=== PATIENT | female | born 1990 | race Two or more races ===

== ENCOUNTER 2016-06-14 02:35 | Inpatient (IN) | payer OTHER ==
[2016-06-14] MEDS ORDERED: IV START KIT ONE (04:59)
[2016-06-14] MEDS ORDERED: OXYTOCIN IN LR 500 ML IV ONE ×2 (05:00→05:19)
[2016-06-14] MEDS ORDERED: OXYTOCIN 10 UNITS/ML VIAL ONE (05:00)
[2016-06-14] MEDS ORDERED: MINERAL OIL 25 ML BOT ONE (05:00)
[2016-06-14] MEDS ORDERED: LIDOCAINE 1% (PRES FREE) 30 ML VIAL ONE (05:00)
[2016-06-14] MEDS ORDERED: LACTATED RINGERS 1,000 ML ONE (05:00)
[2016-06-14] MEDS ORDERED: PUMP TUBING ONE (05:00)
[2016-06-14] MEDS ORDERED: LIDOCAINE Viscous 2% 15 ML UDCUP ONE (05:00)
[2016-06-14] MEDS ORDERED: SODIUM CHLORIDE 0.9% FLUSH 10 ML ONE (05:01)
[2016-06-14] MEDS ORDERED: LACTATED RINGERS 1,000 ML IV PRN (05:19)
[2016-06-14] MEDS ORDERED: EPIDURAL PUMP SET ONE (05:28)
[2016-06-14] MEDS ORDERED: FENTANYL/ROPIVACAINE EPIDURAL 250 ML EP ONE (05:28)
[2016-06-14] MEDS ORDERED: EPIDURAL PROCEDURE TRAY ONE (05:42)
[2016-06-14 05:44] VITALS: BMI 37.2
[2016-06-14 05:59] LABS: HEMATOCRIT 38.5 % (37.0-47.0); HEMOGLOBIN 12.5 gm/l (12.0-16.0); MEAN CELL VOLUME 83.3 fl (81.0-99.0); MEAN CORPUSCULAR HEMOGLOBIN 27.1 pg (27.0-31.0); MEAN CORPUSCULAR HGB CONC 32.5 g/dl (33.0-37.0); RED CELL DISTRIBUTION WIDTH 19.5 % (11.5-14.5)
[2016-06-14] MEDS ORDERED: ONDANSETRON 4 MG/2ML 2 ML VIAL IV PRN (06:39)
[2016-06-14] MEDS ORDERED: NALBUPHINE HCL 20 MG/ML AMP IV PRN (06:39)
[2016-06-14] MEDS ORDERED: METOCLOPRAMIDE HCL 5 MG/ML 2ML VIAL IV PRN (06:39)
[2016-06-14] MEDS ORDERED: NALOXONE HCL 0.4 MG/ML VIAL IV PRN (06:39)
[2016-06-14] MEDS ORDERED: LACTATED RINGERS 500 ML IV PRN (06:39)
[2016-06-14] MEDS ORDERED: EPHEDRINE SULFATE 50 MG/ML 1ML VIAL IV PRN (06:39)
[2016-06-14] MEDS ORDERED: LACTATED RINGERS 1,000 ML IV SCH (06:39)
[2016-06-14] MEDS ORDERED: DIPHENHYDRAMINE HCL 50 MG/1 ML VIAL IV PRN (06:39)
[2016-06-14] MEDS ORDERED: SODIUM CHLORIDE 0.9% 500 ML IV PRN (06:39)
--- NOTE | 2016-06-14 08:16 | PCMAN ---
OB Admission Note - History : 3 Term: 1 : 0 Abortions (S&E): 1 Livin Gestational Age (weeks): 40 Days (#/7): 4 Admit Cervical Dilation:: 4 Admit Cervical Effacement (%):: 80 Admit Station:: -1 Membrane Status: Intact Labor Onset (Date): 06/14/16 Labor Onset (Time): 01:00 Contractions: Yes Contraction Frequency:: 2-5 Heart Rate:: 140 Status:: category I EFW:: 8.5 pounds Summary of Course:: 25 yr old at 40 4/7 weeks who has had an uncomplicated course to date. - Labs Blood Type: A (+) positive Rubella Status: Immune GBS Status: Negative Abnormal Labs: HSV Positive (on acyclovir prophylaxis) - Physical Exam General: Afebrile Psych/Mental Status: Mood/Affect Appropriate, Judgment/Insight Intact Neurological: Grossly Intact, Alert, Oriented x 4, Normal Speech, Cranial Nerves 3-12 Intact HEENT: Atraumatic, PERRLA, EOMI, Mucous membr. moist/pink Lungs: Clear to Auscultation Bilaterally, Normal Air Movement Cardiovascular: Regular Rate and Rhythm, Normal S1, Normal S2, No Murmur Abdomen: Normal Bowel Sounds Genitourinary: Normal Female Genitalia (current exam 7.5 cm/100%/-1; AROM clear fluid) Extremities: Full ROM, Normal Pulses - Problems (1) Post-term , 40-42 weeks of gestation Status: Acute Code: O48.0Assessment/Plan: 40 4/7 weeks gestation in active labor. Epidural pain management is in place. Await .
--- NOTE | 2016-06-14 12:21 | PCMDEL ---
Delivery Note - Labor 1st stage (hr/min):: 8 hr/ 53 min 2nd stage (hr/min):: 2 hr/ 6 min 3rd stage (hr/min):: 0 hr / 9 min Total (hr/min):: 9 hr/ 35 min Pushed (hr/min):: 0 hr / 33 min - Delivery Delivery (Date): 06/14/16 Delivery (Time): 11:59 Infant Gender: Female Presentation: Cephalic Position: OA Umbilical Cord: 3 Vessel Delayed Cord Clamping:: > 3 min 1 Minute Total: 9 5 Minute Total: 9 Placenta:: complete and spontaneous EBL:: 250 ml Perineum:: intact Anesthesia/Meds:: epidural Length ROM:: 4 hr / 1min Comments:: 25 yr old G3 now P2 at 40 4/7 weeks who presented in active labor and is now s/ p normal vaginal delivery over intact perineum.
[2016-06-14] MEDS ORDERED: BENZOCAINE/MENTHOL 60 APPLIC/BOT TP PRN (12:42)
[2016-06-14] MEDS ORDERED: OXYCODONE HCL 5 MG TABLET PO PRN (12:42)
[2016-06-14] MEDS ORDERED: DOCUSATE SODIUM 100 MG CAPSULE PO PRN (12:42)
[2016-06-14] MEDS ORDERED: LANOLIN 50 APPLIC/7G TUBE TP PRN (12:42)
[2016-06-14] MEDS: IBUPROFEN 800 MG TABLET PO PRN ×2 (13:39→20:06)
[2016-06-14] MEDS: HYDROCODONE/ACETAMINOPHEN 5/325MG TABLET PO PRN ×2 (20:06→23:53)
[2016-06-15] MEDS: IBUPROFEN 800 MG TABLET PO PRN ×4 (01:51→20:31)
[2016-06-15] MEDS: HYDROCODONE/ACETAMINOPHEN 5/325MG TABLET PO PRN ×4 (04:04→18:20)
[2016-06-15 06:55] LABS: HEMOGLOBIN 10.3 gm/l (12.0-16.0)
--- NOTE | 2016-06-15 08:01 | PDOC44 ---
- Subjective Day: 1 Reports Flatus, Reports (Pt notes very sore medial upper right thigh this AM. Has not had recent pain medication yet today.), Reports Lochia Light - Objective Temp Pulse Resp BP Pulse Ox 98.0 F 59 16 109/57 06/15/16 07:19 06/15/16 07:19 06/15/16 07:19 06/15/16 07:19 Lab Results 06/15/16 06:05 Hgb 10.3 L D Hct 32.0 L Current Medications Generic Name Dose Route Start Last Admin Trade Name Freq PRN Reason Stop Dose Admin Acetaminophen/Hydrocodone Bitart 1 - 2 tab 06/14/16 12:42 06/15/16 04:04 [place] 5/325 PO 2 tab Q4H PRN Administration Pain (Moderate) Benzocaine/Menthol 1 applic 06/14/16 12:42 Dermoplast TP PRN PRN Patient Comfort Docusate Sodium 100 mg 06/14/16 12:42 Colace PO DAILY PRN Comfort Emollient Ointment 1 applic 06/14/16 12:42 [id number] TP PRN PRN sore nipples Ropivacaine/Fentanyl/NS 250 mls @ 0 mls/hr 06/14/16 06:45 Fentanyl 2 Mcg/Ml + Ropivacaine 0.125% Ep Bag EP EPI ADWOA Protocol Per Protocol Ibuprofen 800 mg 06/14/16 12:42 06/15/16 01:51 Motrin PO 800 mg Q6H PRN Administration Pain (Mild) Oxycodone HCl 5 - 10 mg 06/14/16 12:42 Roxicodone PO Q3H PRN Pain (Severe) Sodium Chloride 10 ml 06/14/16 12:42 Normal Saline 10ml Flush IV PRN PRN IV Flush - Physical Exam General: Afebrile Psych/Mental Status: Mood/Affect Appropriate, Judgment/Insight Intact, Bonding Well Neurological: Grossly Intact, Alert, Oriented x 4, Normal Speech, Normal Reflexes, Cranial Nerves 3-12 Intact HEENT: Atraumatic, PERRLA, EOMI, Mucous membr. moist/pink Lungs: Clear to Auscultation Bilaterally, Normal Air Movement Cardiovascular: Regular Rate and Rhythm, Normal S1, Normal S2, No Murmur Breast: Nipples Intact Fundus: Firm, Below Umbilicus Abdomen: Normal Bowel Sounds Lochia: Light Rectal Exam: Deferred Extremities: Full ROM, Normal Cap Refill, Normal Pulses Skin: Normal Color, Warm, Dry, Intact - Problems:Assessment/Plan (1) Post-term , 40-42 weeks of gestation Status: AcuteAssessment/Plan: S/p natural labor and normal vaginal delivery. (2) Normal spontaneous vaginal delivery Status: AcuteAssessment/Plan: Anticipate discharge to home either later this evening, or tomorrow AM. Disposition: Stable, Other (Possible discharge to home later today, versus tomorrow AM.)
[2016-06-15] MEDS: FENTANYL/ROPIVACAINE EPIDURAL 250 ML EP SCH (12:50)
[2016-06-16] MEDS: HYDROCODONE/ACETAMINOPHEN 5/325MG TABLET PO PRN ×2 (05:38→10:47)
[2016-06-16] MEDS: IBUPROFEN 800 MG TABLET PO PRN ×2 (05:38→11:28)
[2016-06-16 08:55] VITALS: BP 99/59
--- NOTE | 2016-06-16 10:19 | PDOC39B ---
Hospital Course: ADMIT DATE: 06/14/16 DISCHARGE DATE: 06/16/2016 ADMISSION DIAGNOSES: Labor PROCEDURES: Normal spontaneous vaginal delivery HISTORY OF PRESENT ILLNESS: 25 year old G3 T1 L1 at 40 weeks 4 days presenting with onset of labor HOSPITAL COURSE: The patient progressed to a normal vaginal over an intact perineum. By day of discharge the patient is ambulating, eating, voiding, and passing flatus without difficulty. Pain is controlled and lochia is appropriate. She is . - Physical Exam Vital Signs: Temp Pulse Resp BP Pulse Ox 97.9 F 77 18 99/59 06/16/16 08:53 06/16/16 08:53 06/16/16 08:53 06/16/16 08:53 General: Afebrile Psych/Mental Status: Mood/Affect Appropriate, Judgment/Insight Intact Neurological: Grossly Intact, Alert, Oriented x 4, Normal Gait, Normal Speech HEENT: Atraumatic, PERRLA, EOMI, Mucous membr. moist/pink Lungs: Clear to Auscultation Bilaterally, Normal Air Movement Cardiovascular: Regular Rate and Rhythm, Normal S1, Normal S2, No Murmur Breast: Soft, Nipples Intact Fundus: Firm, Below Umbilicus Abdomen: Normal Bowel Sounds Lochia: Light Skin: Normal Color, Warm, Dry, Intact - Discharge Diagnosis (1) Post-term , 40-42 weeks of gestation Status: AcuteAssessment/Plan: S/p natural labor and normal vaginal delivery. (2) Normal spontaneous vaginal delivery Status: AcuteAssessment/Plan: Discharging home today. - Discharge Plan Disposition: Home Additional Instructions: Discharge to home with infant. Vaginal rest times 6 weeks. Normal diet, and increase in other activities as tolerated. Follow up with Dr. Echavarria in the office on July 26, 2016 at 3:30 pm for 6 week check up. If control is desired, it should begin at that time. Prescriptions: Hydrocodone/Acetaminophen [Hydrocodon-Acetaminophen 5-325] 1 - 2 tab PO Q4H PRN #30 PRN Reason: Pain Ibuprofen [IBUPROFEN 800 MG TABLET (SHF)] 800 mg PO Q6H PRN #90 tablet PRN Reason: Pain (Mild) Follow-Up: Payton Echavarria MD [Staff Physician] - 07/26/16 3:30 pm (for 6 week check up)
== END 2016-06-16 12:40 | disposition home or self-care (01) | DRG 774 ==
LOC: FBCOUT 02:35 → FBC 02:35 → FBCOUT 04:42 → FBC 06-15 08:20
PROVIDERS: ADMIT Family Medicine; ATTEND Family Medicine
PROC: 10E0XZZ Delivery of Products of Conception, External Approach (ICD-10-PCS; principal; 2016-06-14)
DX: O48.0 Post-term pregnancy (principal); O98.32 Other infections with a predominantly sexual mode of transmission complicating childbirth; A63.8 Other specified predominantly sexually transmitted diseases; Z3A.40 40 weeks gestation of pregnancy; Z37.0 Single live birth